=== PATIENT | male | born 1990 | race Caucasian/White ===

== ENCOUNTER 2019-12-09 14:09 | Emergency (ER) | payer OTHER ==
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
[2019-12-09] MEDS ORDERED: fentaNYL INJECTION 100 MCG/2 ML AMP IVP PRN (14:30)
[2019-12-09] MEDS ORDERED: NS IV 500 ML 500 ML IV SCH (14:30)
[2019-12-09] MEDS ORDERED: HOLD METFORMIN - RECEIVED CONTRAST 20 ML VIAL IV SCH (14:45)
[2019-12-09] MEDS ORDERED: IOHEXOL 350 MG/ML 100 ML (OMNIPAQUE 350) VIAL IV ONE (14:45)
[2019-12-09] MEDS ORDERED: NS 100 ML (IVPB) BAG IV ONE (14:45)
[2019-12-09] MEDS ORDERED: CATHETER FLUSH 10 ML SYR IV PRN (14:45)
[2019-12-09 14:50] LABS: HEMOGLOBIN 15.1 G/DL (13.3-17.7); WHITE BLOOD COUNT 12.2 10^3/uL (4.3-11.0)
[2019-12-09 14:51] LABS: RED CELL DISTRIBUTION WIDTH 13.1 % (10.0-14.5)
[2019-12-09 15:00] VITALS: BP 122/69
[2019-12-09 15:02] LABS: BILIRUBIN,URINE NEGATIVE (NEGATIVE); CLARITY,URINE CLEAR; COLOR,URINE YELLOW; GLUCOSE, URINE (UA) NEGATIVE (NEGATIVE); KETONES,URINE NEGATIVE (NEGATIVE); NITRITE,URINE NEGATIVE (NEGATIVE); PH,URINE 6.5 (5-9); PROTEIN,URINE NEGATIVE (NEGATIVE)
[2019-12-09 15:03] LABS: LEUKOCYTE ESTERASE ,URINE NEGATIVE (NEGATIVE)
[2019-12-09 15:03] LABS: ALANINE AMINOTRANSFERASE 26 U/L (0-55); ALBUMIN 3.9 GM/DL (3.2-4.5); ALKALINE PHOSPHATASE 103 U/L (40-136); BILIRUBIN,TOTAL 0.4 MG/DL (0.1-1.0); BUN/CREATININE RATIO 16; CALCIUM 9.1 MG/DL (8.5-10.1); CARBON DIOXIDE 24 MMOL/L (21-32); CHLORIDE 103 MMOL/L (98-107); GFR ESTIMATED > 60; GLUCOSE 115 MG/DL (70-105); POTASSIUM 4.1 MMOL/L (3.6-5.0); SODIUM 140 MMOL/L (135-145); TOTAL PROTEIN 6.4 GM/DL (6.4-8.2)
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
[2019-12-09 16:00] VITALS: BP 126/62
[2019-12-09] MEDS ORDERED: fentaNYL INJECTION 100 MCG/2 ML AMP IVP ONE (16:00)
[2019-12-09] MEDS ORDERED: HYDR-4196 PO (16:21)
--- NOTE | 2019-12-09 16:33 | NUR ---
Called supervisor tower with measurements of patient for the TLSO brace. Brace is being sent back with ambulance crew for patient.
--- NOTE | 2019-12-09 16:33 | NUR ---
Patient is given information to call [facility] on Wednesday to make a follow-up appointment for Wednesday.
[2019-12-09 17:00] VITALS: BP 125/57
[2019-12-09 18:45] VITALS: BP 110/80
== END 2019-12-09 18:45 | disposition home or self-care (01) ==
LOC: ER FS 14:11
DX: S32.020A Wedge compression fracture of second lumbar vertebra, initial encounter for closed fracture (principal); V23.4XXA Motorcycle driver injured in collision with car, pick-up truck or van in traffic accident, initial encounter
CPT/HCPCS: 36415; 74177; 80053; 81000; 85027; 96361; 96374; 96376